=== PATIENT | female | born 2005 | race Caucasian/White ===

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

== ENCOUNTER 2025-01-27 14:27 | Outpatient (CLI) | payer OTHER, SELFPAY ==
[2025-01-27 16:06] LABS: CRP < 0.5 mg/dL (<1.0)
[2025-01-28 16:08] LABS: Deamidated Gliadin Abs, IgA 10 units (0-19); Deamidated Gliadin Abs, IgG 3 units (0-19); Immunoglobulin A, Qn 192 mg/dL (87-352)
== END 2025-01-27 14:28 | disposition home or self-care (01) ==
LOC: ANHLAB 14:28
PROVIDERS: PCP Nurse Practitioner Family; Visit Provider Nurse Practitioner
DX: K58.9 Irritable bowel syndrome, unspecified (principal); K62.5 Hemorrhage of anus and rectum; R63.4 Abnormal weight loss; K21.9 Gastro-esophageal reflux disease without esophagitis
CPT/HCPCS: 36415; 82784; 86140; 86231; 86258

== ENCOUNTER 2025-02-19 09:18 | Day surgery (SDC) | payer OTHER, SELFPAY ==
[2025-02-09 10:14] VITALS: BMI 31.0
--- OUTSIDE RECORDS SUMMARY | 2025-02-19 09:21 | XMS_ITS | Encounter Summary ---
Author Organization [facility] Address [address] [place] [address] Care Team Providers Care Sas Architect Name Role Phone Bakari Montilla MD Primary Care Provider [phone] Yamile Mcnamara Primary Care Provider [phone] Vibha Ron MD Primary Care Provide r Encounter Details Date Type Department Care Team (Late st Contact Info) Description 07/28/2019 Milyoni Message Enc [facility] Family & Internal Medicine [facility] [address] [place] [address] Yamile Mcnamara [place] [id number] [place] [address] Test Results Social History Tobacco Use Types Packs/Day Years Used Date Smoking Tobacco: Never Smokeless Tobacco: Never Alcohol Use Standard Drinks/Week Comments No 0 (1 standard drink = 0.6 oz pur e alcohol) AUDIT-C Answer Date Recorded Frequency of Alcohol Consumption Never 12/29/2018 Average Number of Drinks Not on file 019 Frequency of Binge Drinking Not on file 12/09 PHQ-2 Answer Date Recorded PHQ-2 Score 3 07/13/2019 Comments No Sex and Gender Information Value Date Recorded Sex Assigned at Not on file Legal Sex Female 9:09 PM CDT Gender Identity Not on file Sexual Orientation Not on file COVID-19 Exposure Response Date Recorded In the last month, have you been in contact with someone who was confirmed or suspected to have Coronavirus / COVID-19? No / Unsure 07/26/2019 9:45 AM CDT documented as of this encounter Progress Notes * Maira Lucio RN - 07/28/2019 1:54 PM CDT Refer to result note documented in this encounter Plan of Treatment Not on file documented as of this encounter Visit Diagnoses Not on filedocumented in this encounter Additional Health Concerns Infection Onset Date Last Indicated Resolved Time COVID-19 Rule Out 06/20/2020 06/20/2020 06/22/2020 11:11 AM CDT Assessment Noted Time PHQ-9 Depression Total Score: 020 8:45 AM CDT documented as of this encounter Care Teams Sas Architect Relationship Specialty Start Date End Date Bakari Montilla MD PCP - General INTERNAL MEDICINE 12/23/18 05/10/20 [place] [address] [place] [address] PCP - General PHYSICIAN HUMAN RESOURCE MANAGER 05/11/20 12/08/20 Vibha Ron MD [address] [place] [address] PCP - General PEDIATRICS 12/09/20 documented as of this encounter
--- OUTSIDE RECORDS SUMMARY | 2025-02-19 09:21 | XMS_ITS | Encounter Summary ---
Author Organization [facility] Address [address] [place] [address] Care Team Providers Care Net Technical Architect Name Role Phone Yamile Mcnamara Primary Care Provider Vihba Ron MD Primary Care Provide r Encounter Details Date Type Department Care Team (Late st Contact Info) Description 07/06/2020 Cerulean Pharmat Message Enc [facility] Medical Group Family & Internal Medicine [facility] [address] [place] [address] [place] [address] [place] [address] RE: Referral Request Social History Tobacco Use Types Packs/Day Years Used Date Smoking Tobacco: Never Smokeless Tobacco: Never Alcohol Use Standard Drinks/Week Comments No 0 (1 standard drink = 0.6 oz pur e alcohol) AUDIT-C Answer Date Recorded Frequency of Alcohol Consumption Never 12/29/2018 Average Number of Drinks Not on file 019 Frequency of Binge Drinking Not on file 12/09 PHQ-2 Answer Date Recorded PHQ-2 Score - If the patient scores above 3, please move on to questions 3-9 0 10/18/2019 Comments No Sex and Gender Information Value Date Recorded Sex Assigned at Not on file Legal Sex Female 9:09 PM CDT Gender Identity Not on file Sexual Orientation Not on file COVID-19 Exposure Response Date Recorded In the last month, have you been in contact with someone who was confirmed or suspected to have Coronavirus / COVID-19? No / Unsure 06/20/2020 5:01 PM CDT documented as of this encounter Plan of Treatment Not on file documented as of this encounter Visit Diagnoses Not on filedocumented in this encounter Additional Health Concerns Assessment Noted Time PHQ-9 Depression Total Score: 15 020 8:45 AM CDT documented as of this encounter Care Teams Net Technical Architect Relationship Specialty Start [place] [address] [place] [address] PCP - General PHYSICIAN DIRECT MARKETING MANAGER 05/11/20 12/08/20 Vibha Ron MD [address] [place] [address] PCP - General PEDIATRICS 12/09/20 documented as of this encounter
--- OUTSIDE RECORDS SUMMARY | 2025-02-19 09:21 | XMS_ITS | Clinical Summary ---
Author Organization [facility] Address [address] [place] [address] Care Team Providers Care Steward/Stewardess Second Name Role Phone Marina Hua Primary Care Provider [phone] Source Comments [facility],non-owned Affiliates and Associated Physician Practices is amultiple site organization consisting of ambulatory clinics and hospital sitesin [place], [place], [place] and [place]. This disclosure is being madepursuant to the Care Everywhere program and may not contain all information available regarding this patient. Last updated 17.[facility] Allergies Active Allergy Reactions Criticality Noted Date Comments Adhesive Sensitivity Rash Medium 08/14/2020 Bandaids Medications * Be aware that medications may not be up to date on this document. Alwaysverify current medications with the patient. busPIRone (BUSPAR) 15 MG tablet Take 1 (one) tablet by mouth once daily 03/01/2020 Active fluticasone propionate (FLONASE) 50 MCG/ACT nasal spray [place] 2 (two) sprays into each nostril once daily 16 g 5 02/21/2021 Active polyethylene glycol 3350 (Miralax) 17 GM/SCOOP powder Take 17 (seventeen) g by mouth once daily 500 g 4 02/18/2022 Active albuterol HFA (Proventil; Ventolin; Proair) 108 (90 Base) MCG/ACT inhaler Inh[place] 2 (two) puffs by mouth every 6 hours as needed (per an asthma action plan) 36 g 03/27/2022 Active metoclopramide (Reglan) 5 MG tablet TAKE 1 TABLET BY MOUTH THREE TIMES DAILY BEFORE MEALS 90 tablet 1 03/11/2023 Active norelgestromin- ethinyl estradiol (Xulane) 150-35 MCG/24HR patch Apply 1 (one) patch to skin every 7 days (once a week) Active Active Problems Patient Care Coordination No [...] & Plan (10/21/2015 2:39 PM CDT): Assessment: Lobo is a 10 year old girl with ectopic atrial tachycardia, status post ablation. Plan: She is stable for discharge. Will provide discharge instructions. Follow up with Dr. Limon. Assessment & Plan (05/19/2015 6:55 AM PEDIATRIC PHYSICIAN): Assessment: 10 yo F with hx of [...] B CONJUGATE VACCINE 06/18/2006,06/18/2006,2005,09/25,2005,2005,2005 ,2005 INFLUENZA A [id number] VACCINE 03/23/2009, 9 INFLUENZA VACCINE 03/23/2009, 0,01/20/2008,02/21,01/15/2006 [...] Neg Hx Long QT Syndrome Neg Hx WA<55(male) Neg Hx WA<65(female) Neg Hx Marfan Syndrome Neg Hx Pacemaker [...] Sign Reading Time Taken Comments Blood Pressure 98/76 10/13/2024 10:29 AM CDT Pulse 80 10/13/2024 10:29 AM CDT Temperature 35.8 C (96.5 F) 09/06/2022 10:51 AM CDT Respiratory Rate 16 10/13/2024 10:29 AM CDT Oxygen Saturation 99% 10/13/2024 10:29 AM CDT Inhaled Oxygen Concentration 100% 09/06/2022 1 0:51 AM CDT Weight 90.9 kg (200 lb 6.4 oz) 10/13/2024 10:29 AM CDT Height 167 cm (5' 5.75) 10/13/2024 10:29 AM CDT Body Mass Index 32.59 10/13/2024 10:29 AM CDT Plan of Treatment Health Maintenance Due Date Last Done Comments PNEUMOCOCCAL VACCINE (1 of 1 - PPSV23, PCV20, or PCV21) 2011 03/24/2006, 2005, 2005, Additional history exists HIV SCREENING 2020 HPV VACCINE (1 - 3-dose series) 2020 CHLAMYDIA/GONORRHEA SCREENING 2021 MENINGOCOCCAL (Group B) VACCINE SHARED DECISION-MAKING (1 of 2 - Standard) 2021 DEPRESSION SCREENING 03/10/2024 COVID-19 VACCINE (1 - season) 2024 INFLUENZA VACCINE (#1) 2024 3, 12/13/2020, 12/16/2019, Additional history exists DTAP/TDAP/TD VACCINES [...] craig Non-reac tive 07/13/2021 6:14 PM CDT [facility] Comment:Hepatitis C Antibody screen indicates no serologic [...] 2:48 PM CDT 07/13/2021 3:37 PM CDT us Carlin Lincoln MD LAB - CHEMISTRY ORDERABLES Final Result [facility] [address] [place] [id number], [facility] [phone] from Last 3 Months or Most Recently Relevant to Health Maintenance Advance Directives * Full Code (Latest Code Status on File) Date Activated Date Inactivated Comments 08/21/2020 7:24 PM 08/22/2020 5:19 PM * Full Code Date Activated Date Inactivated Comments 10/20/2015 4:16 PM 10/21/2015 11:10 AM * Full Code Date Activated Date Inactivated Comments 05/19/2015 4:30 PM 05/20/2015 11:40 AM Care Teams Steward/Stewardess Second Relationship Specialty Start Date End Date Marina Hua [address] [address] PCP - General 10/13/24
--- OUTSIDE RECORDS SUMMARY | 2025-02-19 09:21 | XMS_ITS | Encounter Summary ---
Author Organization [facility] Address [address] [place] [address] Care Team Providers Care Executive Producer Name Role Phone Bakari oMntilla MD Primary Care Provider + [phone] Yamile Mcnamara Primary Care Provider [phone] Vibha oRn MD Primary Care Provide r Encounter Details Date Type Department Care Team (Late st Contact Info) Description 01/31/2020 Goshi Message Enc [facility] Medical Group Family & Internal Medicine [facility] [id number] [place] [phone] Yamile Mcnamara [place] [id number] [place] [address] RE: Medication Questions Social History Tobacco Use Types Packs/Day Years [...] have Coronavirus / COVID-19? No / Unsure 02/01/2020 7:07 PM SIGNALLING AND COMMUNICATIONS ENGINEER documented as of this encounter Plan of Treatment Not on file documented as of this encounter Visit Diagnoses Not on filedocumented in this encounter Additional Health Concerns Infection Onset Date Last Indicated Resolved Time COVID-19 Rule Out 06/20/2020 06/20/2020 06/22/2020 11:11 AM CDT Assessment Noted Time PHQ-9 Depression Total Score: 020 8:45 AM CDT documented as of this encounter Care Teams Executive Producer Relationship Specialty Start Date End Date Bakari Montilla MD PCP - General INTERNAL MEDICINE 12/23/18 05/10/20 [place] [address] [address] [place], [place] [id number] PCP - General PHYSICIAN FARMWORKER DIVERSIFIED CROPS 05/11/20 12/08/20 Vibha Ron MD [address] [place], [place] [id number] PCP - General PEDIATRICS 12/09/20 documented as of this encounter
--- OUTSIDE RECORDS SUMMARY | 2025-02-19 09:21 | XMS_ITS | Clinical Summary ---
Author Organization [facility] Address [address] [place] [address] Care Team Providers Care Patroller Name Role Phone Vibha Ron MD Primary Care Provide r Allergies No known active allergies Medications vitamin D2, ergocalciferol, [address] UNITS capsuleIndicati ons:Low vitamin D level Take 1 capsule (50,000 Units total) by mouth every 7 days. 8 capsule 08/04/2019 Active famotidine 20 MG tabletIndicatio ns:Costochondri tis Take 1 tablet (20 mg total) by mouth 2 (two) times daily. 60 tablet 02/08/2020 Active ALBUTEROL SULFATE HFA 108 (90 Base) MCG/ACT inhalerIndicati ons:Wheezing INHALE 2 PUFFS INTO THE LUNGS EVERY 6 HOURS NEEDED FOR WHEEZING 18 g 1 02/23/2020 Active sertraline 25 MG tablet Take 25 mg by mouth daily. Active busPIRone 15 MG tabletIndicatio ns:Anxiety Take 1 tablet (15 mg total) by mouth 2 (two) times daily. 60 tablet 03/01/2020 Active polyethylene glycol (MIRALAX) 17 GM/SCOOP powder Take 17 g by mouth daily. Dissolve powder in 240 mL water 255 g 12/09/2020 Active Sennosides (SENNA LAXATIVE) 25 MG Tab Take 2 tablets by mouth nightly at bedtime. at bedtime. May cause stomach cramps 30 tablet 12/09/2020 Active Active Problems Problem Noted Date Diagnosed Date Normal weight, pediatric, BM I 5th to 84th percentile for age 1012/29/2018 Migraine without aura and wi thout status migrainosus, not intractable 12/29/2018 Depression with anxiety 12/29/2018 Medication management 12/29/2018 Chronic headache 06/15/2017 SVT (supraventricular tachycardia) 05/19/2015 Overview (12/29/2018): Last Assessment & Plan: Assessment: Lobo is a 10 year old girl with ectopic atrial tachycardia, status post ablation. Plan: She is stable for discharge. Will provide discharge instructions. Follow up with Dr. Limon. Resolved Problems Problem Noted Date Diagnosed Date Resolved Date Acute right ankle pain 07/30/201612/29 Otitis media of left ear 03/29/2012 Routine or child health check 03/29/2012 12/29/2018 Immunizations Immunization Administration Dates Next Due Dtap 09/24/2010, 7,2005,2005,2005 Flumist (Intranasal) 02/10/2014 Fluzone 6 Months+ Quad (0.5 mL Prefilled Syringe) 12/16/2019 H1N1 Intranasal 2009 Influenza 03/23/2009,2008 Hepatitis A (Generic) 01/01/2007,03/24/2006 Hepatitis B Pediatric 2005,2005,03/10 Hib 06/18/2006, 6,2005,2005 IPV/OPV 09/24/2010, 6,2005,2005 Influenza (FluMist) 12/31/2012,01/28/2012 Influenza (Generic) 12/16/2017, 7,03/15/2016,2015,01/17/2010,03/23/2009,01/20/2008,1 ,02/21/2006,01/15/2006 MMR 09/24/2010 Menactra 03/29/2016 Pneumococcal (Prevnar 7) 03/24/2006,09/07,2005,2005 Tdap (Adacel) 03/29/2016 Varicella (Varivax) 09/24/2010 Varicella/MMR (Proquad) 03/24/2006 Family History Medical History Relation Comments Hypertension Father Anxiety Mother Depression Mother Hypertension Mother Relation Status Comments Father Alive Mother Alive Social History Tobacco Use Types Packs/Day Years Used Date Smoking Tobacco: Never Smokeless Tobacco: Never Tobacco Cessation:Counseling Given: Yes Alcohol Use Standard Drinks/Week Comments No 0 [...] Sign Reading Time Taken Comments Blood Pressure 138/75 11/22/2021 9:53 PM CDT Pulse 68 11/22/2021 9:53 PM CDT Temperature 36.4 C (97.5 F) 11/22/2021 9:53 PM CDT Respiratory Rate 18 11/22/2021 9:53 PM CDT Oxygen Saturation 98% 11/22/2021 9:53 PM CDT Inhaled Oxygen Concentration - - Weight 82.1 kg (181 lb) 11/22/2021 9:53 PM CDT Height 165.1 cm (5' 5) 11/22/2021 9:53 PM CDT Body Mass Index 30.12 11/22/2021 9:53 PM CDT Body Mass Index Percentile 95.44% 11/22/2021 9:5 3 PM CDT Growth Chart: CDC (Girls, 2- 20 Years) Plan of Treatment Health Maintenance Due Date Last Done Comments HPV Vaccines (1 - 3-dose series) 2020 Annual Physical 10/17/2020 10/18/2019 Meningococcal B Vaccine (1 of 2 - Standard) 2021 Hepatitis C 2023 COVID-19 Vaccine ( - 2024- season) 2024 Influenza Adult (#1) 2024 12/16/2019, 12/16/2017, 02/10/2017, Additional history exists DTaP, Tdap and Td Vaccines (7 - Td or Tdap) 03/29/2026 03/29/2016, 09/24/2010, 09/17/2006, Additional history exists Hepatitis B Vaccines Completed 2005, 2005, 2005 Pneumococcal Vaccine: Pediatrics (0 to 5 Years) and At-Risk Patients (6 to 49 Years) Aged Out 03/24/2006, 2005, 2005, Additional history exists No longer eligible based on patient's age to complete this topic Hepatitis A Vaccines Completed 01/01/2007, 03/24/19 07 Meningococcal Vaccine Aged Out 03/29/2016 No stephanie sofia eligible based on patient's age to complete this topic RSV Immunizations Under 20 Months Aged Out No longer eligible based on patient's age to complete this topic Insurance Care Teams Patroller Relationship Specialty Start Date End Date Vibha Ron MD [address] [place], [place] [address] [address] PCP - General PEDIATRICS 12/09/20
--- OUTSIDE RECORDS SUMMARY | 2025-02-19 09:21 | XMS_ITS | Encounter Summary ---
Author Organization [facility] Address [address] [place] [address] Care Team Providers Care Winder Helper Name Role Phone Bakari Montilla MD Primary Care Provider + [phone] aYmile Mcnamara Primary Care Provider [phone] Vibha Ron MD Primary Care Provide r Encounter Details Date Type Department Care Team (Latest Contact Info) Description 01/13/2018 Abstract [facility] Medical Group Scott Barahona MD Social History Tobacco Use Types Packs/Day Years Used Date Smoking Tobacco: Never Assessed Comments Unknown Sex and Gender Information Value Date Recorded Sex Assigned at Not on file Legal Sex Female 9:09 PM CDT Gender Identity Not on file Sexual Orientation Not on file documented as of this encounter Plan of Treatment Not on file documented as of this encounter Visit Diagnoses Not on filedocumented in this encounter Additional Health Concerns Infection Onset Date Last Indicated Resolved Time COVID-19 Rule Out 06/20/2020 06/20/2020 06/22/2020 11:11 AM CDT documented as of this encounter Care Teams Winder Helper Relationship Specialty Start Date End Date Bakari Montilla MD PCP - General INTERNAL MEDICINE 12/23/18 05/10/20 [place] [address] [place] [address] PCP - General PHYSICIAN MOTOR BUILDER ASSEMBLER 05/11/20 12/08/20 Vibha Ron MD [address] [facility] [address] PCP - General PEDIATRICS 12/09/20 documented as of this encounter
--- OUTSIDE RECORDS SUMMARY | 2025-02-19 09:21 | XMS_ITS | Encounter Summary ---
Author Organization [facility] Address [address] [place] [address] Care Team Providers Care Switch Cleaner Name Role Phone Bakari Montilla MD Primary Care Provider [phone] Yamile Mcnamara Primary Care Provider [phone] Vibha Ron MD Primary Care Provide r Encounter Details Date Type Department Care Team (Late st Contact Info) Description 08/03/2019 Tropical [place] Message Enc [facility] Medical Group Family & Internal Medicine [facility] [id number] [place] [phone] Yamile Mcnamara [place] [id number] [place] [address] RE: Medication Questions Social History Tobacco Use [...] AM CDT documented as of this encounter Plan of Treatment Not on file documented as of this encounter Visit Diagnoses Not on filedocumented in this encounter Additional Health Concerns Infection Onset Date Last Indicated Resolved Time COVID-19 Rule Out 06/20/2020 06/20/2020 06/22/2020 11:11 AM CDT Assessment Noted Time PHQ-9 Depression Total Score: 15 020 8:45 AM CDT documented as of this encounter Care Teams Switch Cleaner Relationship Specialty Start Date End Date Bakari Montilla MD PCP - General INTERNAL MEDICINE 12/23/18 05/10/20 [place] [address] [place] [address] PCP - General PHYSICIAN HAND SOLE SEWER 05/11/20 12/08/20 Vibha Ron MD [address] [place] [address] PCP - General PEDIATRICS 12/09/20 documented as of this encounter
[2025-02-19 09:38] VITALS: BMI 30.8
[2025-02-19 09:39] VITALS: BP 120/69; PULSE 66; RESP 18; TEMP 36.3; O2SAT 100
[2025-02-19] MEDS: SIMETHICONE ORAL SUSPENSION 20 MG/0.3 ML 30 ML BOTTLE 1.8 ML PO (09:54)
--- NOTE | 2025-02-19 10:26 | SUR.PREOP ---
CALLED TO PT ROOM. PT HAS NOTED RASH/HIVE TO TEGADERM SITE OVER IV. TEGADERM REMOVED. GENTLY WIPED AREA WITH ALCOHOL PAD. AIR DRYED. 2X2 AND PAPER TAPE USED TO COVER IV INSERTION SITE. ALLERGY TO TEGADERM PLACED IN CHART
[2025-02-19] MEDS: LACTATED RINGERS 1,000 ML 150 ML IV CONT (10:30)
--- NOTE | 2025-02-19 11:14 | PM.IMHP2 ---
H&P: HPI History of Present Illness Date/Time: 02/19/25 11:14 Chief Complaint: Rectal bleeding- abdominal pain-diarrhea Narrative: the patient is referred for EGD and colonoscopy several GI complaints, including persistent diarrhea having received a course of Xifaxan. She also describes frequent heartburn and epigastric pain. She has had EGD and colonoscopy approximately 3 years Review of Systems Review of Systems: All systems reviewed & are unremarkable except as noted in HPI and below PMFSH Past Medical History Medical History IBS (irritable bowel syndrome) Headache GERD (gastroesophageal reflux disease) Anxiety Anemia Asthma Family History Family History Father Depression Mother Hypertension Depression Grandparent Cancer Depression Heart disease Grandparent Diabetes mellitus Social History Social History Social History: 07/16/24 very confident with medical forms Smoking status: Never smoker Alcohol intake: never Substance use: never Substance use type: does not use Lack of Transportation: No Lack of Food: Never True Current Housing: I Have Housing Concerned About Future Housing: No Difficulty Paying Gas/Electric Bills: No Difficulty Paying for Meds: No Currently Unemployed: No Education: High School Diploma/GED Difficulty w/ Childcare or Family Care: No Living arrangements: with family Gender identity (if verbalized by the patient): Female Spiritual care concerns: No Agree to blood products: Yes Meds Home Medications and Allergies Home Medications ?Medication ?Instructions ?Recorded ?Confirmed ?Type cyproheptadine 4 mg tablet 8 mg PO DAILY 07/23/23 02/19/25 History sertraline 50 mg tablet (Zoloft) 50 mg PO DAILY PRN anxiety 07/23/23 02/19/25 History cyclobenzaprine 5 mg tablet 5 - 10 mg (1 - 2 x 5 mg) PO TID 09/15/23 02/19/25 Rx PRN muscle spasm #30 tabs metoclopramide HCl 5 mg tablet 10 mg PO DAILY 12/13/24 02/19/25 History Held on 02/10/25. Instructions: .Provider Order dicyclomine 20 mg tablet 20 mg PO .every 6 hours PRN #120 11/20/25 12/13/25 Rx tabs norelgestromin 150 mcg-e.estradiol 1 patch transdermal WEEKLY 01/27/25 02/19/25 History 35 mcg/24 hr weekly transderm patch (Zafemy) omeprazole 40 mg capsule,delayed 40 mg PO DAILY #30 caps 01/27/25 02/19/25 Rx release Allergies Allergy/AdvReac Type Severity Reaction Status Date / Time adhesive Allergy Intermediate HIVES Verified 02/19/25 10:28 TEGADERM Allergy Intermediate Hives Uncoded 02/19/25 10:28 Vital Signs Vital Signs - 24 hr 02/19/25 09:39 Temperature 97.4 F L Pulse Rate 66 Respiratory Rate 18 Blood Pressure 120/69 Pulse Oximetry 100 Oxygen Delivery Room Air Exam Const: General: cooperative and healthy appearing Resp: Effort & Inspection: normal respiratory effort and able to speak in complete sentences Auscultation: clear to auscultation bilaterally Cardio: Rate: regular rate Rhythm: regular rhythm GI: Inspection: normal to inspection GI Palp: No No hepatosplenomegaly present Auscultation: normal bowel sounds Rectal Exam: deferred Skin: General skin exam: normal color Psych: Appearance: grossly normal Mental Status: mental status grossly normal Assessment and Plan Assessment and plan (1) GERD (gastroesophageal reflux disease): Code(s): K21.9 - Gastro-esophageal reflux disease without esophagitis Status: Acute Assessment and Plan: The patient is deemed a good candidate for the procedure. Consent signed. Will proceed. (2) GERD (gastroesophageal reflux disease): Code(s): K21.9 - Gastro-esophageal reflux disease without esophagitis Status: Acute Prior Studies I have reviewed the following patient records and this information was taken into consideration when formulating the assessment and plan.: previous labs, previous ER visits, previous hospitalizations and previous clinic visits
--- NOTE | 2025-02-19 11:14 | WPDANESEPPF ---
Anes - Initial Pre Proc Eval Procedure: Operation Date: 02/19/25 11:00 Proposed Procedures p EGD & Diagnostic Colonoscopy - Hermelindo Sullivan MD Date/Time: 02/19/25 11:14 Surgeon: Hermelindo Sullivan MD Pre Op Diagnosis: GERD, Anorexia Patient Data Age: 19 Gender: F Height: 1.68 m Weight: 86.6 kg Last Vital Signs Temp 36.3 C L 02/19/25 09:39 Pulse 66 02/19/25 09:39 Resp 18 02/19/25 09:39 BP 120/69 02/19/25 09:39 Pulse Ox 100 02/19/25 09:39 O2 Del Method Room Air 02/19/25 09:39 Allergies Allergy/AdvReac Type Severity Reaction Status Date / Time adhesive Allergy Intermediate HIVES Verified 02/19/25 10:28 TEGADERM Allergy Intermediate Hives Uncoded 02/19/25 10:28 Home Medications ?Medication ?Instructions ?Recorded ?Confirmed ?Type cyproheptadine 4 mg tablet 8 mg PO DAILY 07/23/23 02/19/25 History sertraline 50 mg tablet (Zoloft) 50 mg PO DAILY PRN anxiety 07/23/23 02/19/25 History cyclobenzaprine 5 mg tablet 5 - 10 mg (1 - 2 x 5 mg) PO TID 09/15/23 02/19/25 Rx PRN muscle spasm #30 tabs metoclopramide HCl 5 mg tablet 10 mg PO DAILY 12/13/24 02/19/25 History Held on 02/10/25. Instructions: .Provider Order dicyclomine 20 mg tablet 20 mg PO .every 6 hours PRN #120 01/27/25 02/19/25 Rx tabs norelgestromin 150 mcg-e.estradiol 1 patch transdermal WEEKLY 01/27/25 02/19/25 History 35 mcg/24 hr weekly transderm patch (Zafemy) omeprazole 40 mg capsule,delayed 40 mg PO DAILY #30 caps 01/27/25 02/19/25 Rx release Patient hx anesthesia problems: none Family hx anesthesia problems: none Results Review: All pre-operative results and documents have been reviewed as part of the pre-operative evaluation. [facility] Past Medical History Medical History IBS (irritable bowel syndrome) Headache GERD (gastroesophageal reflux disease) Anxiety Anemia Asthma Family History Family History Father Depression Mother Hypertension Depression Grandparent Cancer Depression Heart disease Grandparent Diabetes mellitus Social History Social History Social History: 07/16/24 very confident with medical forms Smoking status: Never smoker Alcohol intake: never Substance use: never Substance use type: does not use Lack of Transportation: No Lack of Food: Never True Current Housing: I Have Housing Concerned About Future Housing: No Difficulty Paying Gas/Electric Bills: No Difficulty Paying for Meds: No Currently Unemployed: No Education: High School Diploma/GED Difficulty w/ Childcare or Family Care: No Living arrangements: with family Gender identity (if verbalized by the patient): Female Spiritual care concerns: No Agree to blood products: Yes Anes - Eval Final PreProcedure Day of Procedure 02/19/25 11:14 Heart: regular rate and rhythm Lungs: clear to auscultation Airway: Mallampati scale class II Neurological: alert and oriented Last oral intake: >/= 8 hours ASA classification: I Emergent: no Anesthetic plan: proceed Anesthesia type and monitoring: monitored anesthesia care Results Review: All pre-operative results and documents have been reviewed as part of the pre-operative evaluation. Informed Consent: The patient's anesthetic plan and its attendant risks and benefits were discussed with the patient/family/POA. Questions were solicited and answers provided to the satisfaction of the patient/family/POA.
--- NOTE | 2025-02-19 11:37 | SUR.OPER ---
EGD [id number]. Colonoscopy start time 1138.
[2025-02-19 11:54] VITALS: BP 118/72; PULSE 72; RESP 15; O2SAT 98
--- NOTE | 2025-02-19 11:56 | WPDANESPN ---
Anes - Prog Note Post-Op Date/Time: 02/19/25 11:56 Cardiovascular status: normal Respiratory status: normal Airway patency: baseline Mental status: baseline Post-Op hydration status: normal Vital Signs: Last Vital Signs Temp 36.3 C L 02/19/25 09:39 Pulse 66 02/19/25 09:39 Resp 18 02/19/25 09:39 BP 120/69 02/19/25 09:39 Pulse Ox 100 02/19/25 09:39 O2 Del Method Room Air 02/19/25 09:39 Pain Score (VAS): 0 I/O: Intake & Output 02/18/25 02/19/25 02/19/25 23:59 07:59 15:59 Intake Total 0 Balance 0 Patient Feedback: Patient satisfied with anesthetic care.
[2025-02-19 12:04] VITALS: BP 113/80; PULSE 70; RESP 16; O2SAT 100
[2025-02-19 12:14] VITALS: BP 110/65; PULSE 61; RESP 18; O2SAT 100
== END 2025-02-19 12:20 | disposition home or self-care (01) ==
PROVIDERS: PCP Nurse Practitioner Family; Referring Provider Nurse Practitioner; Visit Provider Internal Medicine Gastroenterology
PROC: 0DJ08ZZ Inspection of Upper Intestinal Tract, Via Natural or Artificial Opening Endoscopic (ICD-10-PCS; CPT 45378; principal; 2025-02-19 11:00)
DX: K62.5 Hemorrhage of anus and rectum (principal); R19.7 Diarrhea, unspecified; K21.9 Gastro-esophageal reflux disease without esophagitis; K64.8 Other hemorrhoids; K44.9 Diaphragmatic hernia without obstruction or gangrene; K29.70 Gastritis, unspecified, without bleeding
CPT/HCPCS: 45380; 43239

== ENCOUNTER 2025-02-19 11:40 | Outpatient (NON) | payer OTHER, SELFPAY ==
--- NOTE | 2025-02-19 | S_PTH ---
PATIENT: Lobo Coats LOC: [facility] U#:[id number] AGE/SX: 19/F ROOM: RE02/19/[address]: Hermelindo Sullivan MD : 2005 BED: DIS: 02/19/2025 SPEC #: [id number] RECD: 02/21/25 13:37 STATUS: JOEL REQ #: [id number] GEO: 02/19/25 00:[address]: Hermelindo Sullivan DEPT: [facility] Surgical RECD BY: Lori Valentine ENTERED: 02/21/25 13:44 SP TYPE: Surgical OTHR DR: Marina Hua, JON Tissues: A - Gastric Biopsy B - Gastric Polyp C - Esophageal Biopsy D - Duodenal Biopsy E - Biopsy F - Colon Biopsy G - Colon Biopsy Procedures: Hematoxylin and Eosin Stain Gross and Microscopic Level 4
== END 2025-02-19 11:41 | disposition home or self-care (01) ==
LOC: ANHLAB 02-21 11:41
PROVIDERS: PCP Nurse Practitioner Family; Visit Provider Internal Medicine Gastroenterology
DX: K21.9 Gastro-esophageal reflux disease without esophagitis (principal)
CPT/HCPCS: 88305

== ENCOUNTER 2025-02-24 07:26 | Outpatient (CLI) | payer OTHER, SELFPAY ==
--- NOTE | ~2025-02-24 | NM_ITS ---
EXAM: NM gastric emptying study DATE: 02/24/2025 12:44 INDICATION: Nausea. TECHNIQUE: A gastric emptying study was performed using the methodology of Miguelina PICKARD, et al. J Nucl Med 2007; 48:568-572. The patient was given a meal consisting of 2 scrambled eggs labeled with 0.981 mCi Tc-99m sulfur colloid, 2 slices of toast, two packages of jam, and approximately 120 mL of water. Simultaneous anterior and posterior 1-min images of the abdomen were obtained with the patient supine at multiple time points over a total period of 4 hours. The geometric mean of anterior and posterior views was determined, and the percentage retention was calculated for each time point. COMPARISON: None. FINDINGS: Gastric retention of the radiotracer-labeled meal was 85%, 60%, and 4% at the 1- hour, 2-hour, and 4-hour time points, respectively. With this technique, apparent rapid gastric emptying is suggested by <30% gastric retention at 1 hour. Delayed gastric emptying is defined by gastric retention of >90% at 1 hour, >60% retention at 2 hours, or >10% retention at 4 hours. IMPRESSION: 1. Borderline delayed gastric emptying. Reviewed, dictated and finalized at location [facility]. [facility]
--- OUTSIDE RECORDS SUMMARY | 2025-02-24 07:30 | XMS_ITS | Clinical Summary ---
Author Organization [facility] Address [address] [place] [address] Phone Care Team Providers Care Appointment Manager Name Role Phone Marina Hua NP Primary Care Provider [phone] Allergies Active Allergy Reactions Criticality Noted Date Comments Cetirizine Unknown 09/08/2024 Medications ibuprofen (ADVIL,MOTRIN) 400 mg tablet Take 1 tablet (400 mg total) by mouth every 6 (six) hours as needed for pain Active acetaminophen (TYLENOL) 500 mg tablet Take 1 tablet (500 mg total) by mouth every 6 (six) hours as needed for pain Active metoclopramide (REGLAN) 5 mg tablet Take 1 tablet (5 mg total) by mouth 4 (four) times a day Active cyclobenzaprine (FLEXERIL) 10 mg tablet Take 1 tablet (10 mg total) by mouth 3 (three) times a day as needed for muscle spasms Active sertraline (ZOLOFT) 50 mg tablet Take 1 tablet (50 mg total) by mouth daily Active busPIRone (BUSPAR) 15 mg tabletIndication s:Generalized Anxiety Disorder Take 1 tablet (15 mg total) by mouth 3 (three) times a day Active Active Problems No known active problems Medical History Medical History Date Comments Anxiety Depression Migraines Gastroparesis Social History Tobacco Use Types Packs/Day Years Used Date Smoking Tobacco: Never Smokeless Tobacco: Never Tobacco Cessation:Counseling Given: Not Answered AUDIT-C Answer Date Recorded Q1: How often do you have a drink containing alcohol? Never 09/08/2024 Q2: How many drinks containi ng alcohol do you have on a typical day when you are drinking? Patient does not drink Q3: How often do you have si x or more drinks on one occasion? Never 09/08/2024 Comments Unknown Sex and Gender Information Value Date Recorded Sex Assigned at Not on file Legal Sex Female 6:58 AM ADMISSIONS ASSISTANT Gender Identity Not on file Sexual Orientation Not on file Growth Chart Information Age Height Weight [id number] th Percentile BMI Percentile Head Circum Head Circum Percentile Date 19 years 167.6 cm (5' 6) 90.5 kg (199 lb 9.6 oz) 95.46%* 2024 * [facility] (Girls, 2-20 Years) Last Filed Vital Signs Vital Sign Reading Time Taken Comments Blood Pressure 128/82 09/08/2024 2:10 PM CDT Pulse 86 09/08/2024 2:10 PM CDT Temperature - - Respiratory Rate 18 09/08/2024 2:10 PM CDT Oxygen Saturation 98% 09/08/2024 2:10 PM CDT Inhaled Oxygen Concentration - - Weight 90.5 kg (199 lb 9.6 oz) 09/08/2024 2:10 P M CDT Height 167.6 cm (5' 6) 09/08/2024 2:10 PM CDT Body Mass Index 32.22 09/08/2024 2:10 PM CDT Plan of Treatment Health Maintenance Due Date Last Done Comments Depression Screening 2005 Hepatitis C Screening 2005 Pneumococcal vaccine <65 (1 of 1 - PPSV23, PCV20, or PCV21) 2011 03/24/2006, 2005, 2005, Additional history exists HPV Vaccines (1 - 3-dose series) 2020 Meningococcal B Vaccine (1 o f 2 - Standard) 2021 Regular Well Visit/Exam 18-64 2023 Influenza Vaccine (#1) 2024 3, 12/13/2020, 12/16/2019, Additional history exists DTaP/Tdap/Td Vaccine (7 - Td or Tdap) 03/29/2026 03/29/2016, 09/24/2010, 09/17/2006, Additional history exists Hepatitis B Screening Completed 2005 , 2005, 2005 Varicella Vaccines Completed 09/24/2010, 03/24/2006 Meningococcal Vaccine Completed 04/24/2021, 017 Insurance [facility] UHC CHOICE PLUS [facility] * Guarantor: RAMAKRISHNA BE Account Type Relation to Patient Date of Phone Billing Address Personal/Family [address] [place] [id number] Care Teams Appointment Manager Relationship Specialty Start Date End Date Marina Hua NP [address] [place] [address] PCP - General Nurse Practitioner 07/29/24
--- OUTSIDE RECORDS SUMMARY | 2025-02-24 07:30 | XMS_ITS | Clinical Summary ---
Author Organization [facility] Address [address] [place] [address] Care Team Providers Care Chief Pharmacist Name Role Phone No, Pcp GROUP HOME WORKER Primary Care Provider Unavailabl e Social History Tobacco Use Types Packs/Day Years Used Date Smoking Tobacco: Never Assessed Comments Unknown Sex and Gender Information Value Date Recorded Sex Assigned at Not on file Legal Sex Female 11:18 AM EST Gender Identity Not on file Sexual Orientation Not on file Plan of Treatment Not on file Medical Devices Not on file Care Teams Chief Pharmacist Relationship Specialty Start Date End Date No, Pcp, GROUP HOME WORKER N/A Do not use PCP - General Family Medicine 01/31/20
--- OUTSIDE RECORDS SUMMARY | 2025-02-24 07:30 | XMS_ITS | Encounter Summary ---
Author Organization [facility] Address [address] [place] [address] Care Team Providers Care Transfer Car Operator Name Role Phone Yamile Mcnamara Primary Care Provider Vibha Ron MD Primary Care Provide r Encounter Details Date Type Department Care Team (Late st Contact Info) Description 07/06/2020 [place] Message Enc [facility] Medical Group Family & Internal Medicine [facility] [address] [place] [address] [place] [address] [place] [address] RE: Referral Request Social History [...] documented as of this encounter Care Teams Transfer Car Operator Relationship Specialty Start [place] [address] [place] [address] PCP - General PHYSICIAN HYDROGRAPHICAL TECHNICAL OFFICER 05/11/20 12/08/20 Vibha Ron MD [address] [place] [address] PCP - General PEDIATRICS 12/09/20 documented as of this encounter
--- OUTSIDE RECORDS SUMMARY | 2025-02-24 07:30 | XMS_ITS | Clinical Summary ---
Author Organization [facility] Address [address] [place] [address] Care Team Providers Care Sales Review Clerk Name Role Phone Marina Hua Primary Care Provider [phone] Source Comments [facility],non-owned Affiliates and Associated Physician Practices is amultiple site organization consisting of ambulatory clinics and hospital sitesin [place], [place], [place] and [place]. This disclosure is being madepursuant to the Care Everywhere program and may not contain all information available regarding this patient. Last updated 17.[facility] Allergies Active Allergy Reactions Criticality Noted Date Comments Adhesive Sensitivity Rash Medium 08/14/2020 Bandaids Medications * Be aware that medications may not be up to date on this document. Alwaysverify current medications with the patient. busPIRone (BUSPAR) 15 MG tablet Take 1 (one) tablet by mouth once daily 03/01/2020 Active fluticasone propionate (FLONASE) 50 MCG/ACT nasal spray [place] 2 (two) sprays into each nostril once [...] [place]. Assessment & Plan (05/19/2015 6:55 AM RN SANE): Assessment: 10 yo F with hx of [...] B CONJUGATE VACCINE 06/18/2006,06/18/2006,2005,09/25,2005,2005,2005 ,2005 INFLUENZA A [id number] VACCINE 03/23/2009, 9 INFLUENZA VACCINE 03/23/2009, 0,01/20/2008,02/21,01/15/2006 [...] Neg Hx Long QT Syndrome Neg Hx [place]<55(male) Neg Hx [place]<65(female) Neg Hx Marfan Syndrome Neg Hx Pacemaker [...] craig Non-reac tive 07/13/2021 6:14 PM CDT [facility] Comment:Hepatitis C Antibody screen indicates no [...] MD LAB - CHEMISTRY ORDERABLES Final Result [facility] [address] [place] [id number], [facility] [phone] from Last 3 Months or Most Recently Relevant to Health Maintenance Advance Directives * Full Code (Latest Code Status on File) Date Activated Date Inactivated Comments 08/21/2020 7:24 PM 08/22/2020 5:19 PM * Full Code Date Activated Date Inactivated Comments 10/20/2015 4:16 PM 10/21/2015 11:10 AM * Full Code Date Activated Date Inactivated Comments 05/19/2015 4:30 PM 05/20/2015 11:40 AM Care Teams Sales Review Clerk Relationship Specialty Start Date End Date Marina Hua [address] [address] PCP - General 10/13/24
--- OUTSIDE RECORDS SUMMARY | 2025-02-24 07:30 | XMS_ITS | Encounter Summary ---
Author Organization [facility] Address [address] [place] [address] Care Team Providers Care Claim Benefit Specialist Name Role Phone Bakari Montilla MD Primary Care Provider [phone] Yamile Mcnamara Primary Care Provider [phone] Vibha Ron MD Primary Care Provide r Encounter Details Date Type Department Care Team (Late st Contact Info) Description 08/03/2019 [employer] Message Enc [facility] Medical [facility] Family & Internal Medicine [facility] [id number] [place] [phone] [place]nam[place] [id number] [place] [phone] RE: Medication Questions Social History Tobacco [...] documented as of this encounter Care Teams Claim Benefit Specialist Relationship Specialty Start Date End Date Bakari Montilla MD PCP - General INTERNAL MEDICINE 12/23/18 05/10/20 [place] [address] [place] [address] PCP - General PHYSICIAN CABLE SPLICER HELPER 05/11/20 12/08/20 Vibha Ron MD [address] [place] [address] PCP - General PEDIATRICS 12/09/20 documented as of this encounter
--- OUTSIDE RECORDS SUMMARY | 2025-02-24 07:30 | XMS_ITS | Encounter Summary ---
Author Organization [facility] Address [address] [place] [address] Care Team Providers Care Pig Breeder Name Role Phone Bakari Montilla MD Primary Care Provider + [phone] Yamile Mcnamara Primary Care Provider [phone] Vibha Ron MD Primary Care Provide r Encounter Details Date Type Department Care Team (Latest Contact Info) Description 01/13/2018 Abstract [facility] Medical Group Scott Barahona MD Social [...] documented as of this encounter Care Teams Pig Breeder Relationship Specialty Start Date End Date Bakari Montilla MD PCP - General INTERNAL MEDICINE 12/23/18 05/10/20 [place] [address] [place] [address] PCP - General PHYSICIAN SCRAP COLLECTOR 05/11/20 12/08/20 Vibha Ron MD [address] [facility] [address] PCP - General PEDIATRICS 12/09/20 documented as of this encounter
--- OUTSIDE RECORDS SUMMARY | 2025-02-24 07:30 | XMS_ITS | Encounter Summary ---
Author Organization [facility] Address [address] [place] [address] Care Team Providers Care Treasurer Name Role Phone Bakari Montilla MD Primary Care Provider + [phone] Yamile Mcnamara Primary Care Provider [phone] Vibha Ron MD Primary Care Provide r Encounter Details Date Type Department Care Team (Late st Contact Info) Description 01/31/2020 [employer] Message Enc [facility] Medical Group Family & Internal Medicine [facility] [id number] [place] [phone] Yamile Mcnamara [place] [address] [place] [address] RE: Medication Questions Social History Tobacco Use [...] COVID-19? No / Unsure 02/01/2020 7:07 PM PHARMACEUTICAL ASSISTANT documented as of this encounter Plan of Treatment Not on file documented as of this encounter Visit Diagnoses Not on filedocumented in this encounter Additional Health Concerns Infection Onset Date Last Indicated Resolved Time COVID-19 Rule Out 06/20/2020 06/20/2020 06/22/2020 11:11 AM CDT Assessment Noted Time PHQ-9 Depression Total Score: 020 8:45 AM CDT documented as of this encounter Care Teams Treasurer Relationship Specialty Start Date End Date Bakari Montilla MD PCP - General INTERNAL MEDICINE 12/23/18 05/10/20 [place] [address] [address] [place], [place] [id number] PCP - General PHYSICIAN EMPLOYMENT CLERK 05/11/20 12/08/20 Vibha Ron MD [address] [place], [place] [id number] PCP - General PEDIATRICS 12/09/20 documented as of this encounter
--- OUTSIDE RECORDS SUMMARY | 2025-02-24 07:30 | XMS_ITS | Encounter Summary ---
Author Organization [facility] Address [address] [place] [address] Care Team Providers Care Managing Cognitive Engineer Name Role Phone Bakari Montilla MD Primary Care Provider + [phone] Yamile Mcnamara Primary Care Provider [phone] Vibha Ron MD Primary Care Provide r Encounter Details Date Type Department Care Team (Late st Contact Info) Description 07/28/2019 [employer] Message Enc [facility] Medical Group Family & Internal Medicine [facility] [address] [place] [address] Yamile Mcnamara [place] [phone] [place] [phone] Test Results Social History Tobacco Use [...] documented as of this encounter Care Teams Managing Cognitive Engineer Relationship Specialty Start Date End Date Bakari Montilla MD PCP - General INTERNAL MEDICINE 12/23/18 05/10/20 [place] [address] [place] [address] PCP - General PHYSICIAN CROSSING GUARD 05/11/20 12/08/20 Vibha Ron MD [address] [place] [address] PCP - General PEDIATRICS 12/09/20 documented as of this encounter
--- OUTSIDE RECORDS SUMMARY | 2025-02-24 07:30 | XMS_ITS | Clinical Summary ---
Author Organization [facility] Address [address] [place] [address] Care Team Providers Care Vice President Safety Name Role Phone Vibha Ron MD Primary Care Provide r Allergies No known active allergies Medications vitamin D2, ergocalciferol, [address]1871 UNITS capsuleIndicati ons:Low vitamin D level Take [...] to complete this topic Insurance Care Teams Vice President Safety Relationship Specialty Start Date End Date Vibha Ron MD [address] [place], [place] [address] [address] PCP - General PEDIATRICS 12/09/20
== END 2025-02-24 07:27 | disposition home or self-care (01) ==
PROVIDERS: PCP Nurse Practitioner Family; Visit Provider Nurse Practitioner
DX: R11.0 Nausea (principal); R63.4 Abnormal weight loss; R63.0 Anorexia; R68.81 Early satiety; K30 Functional dyspepsia
CPT/HCPCS: 78264; A9541